=== PATIENT | male | born 1975 | race Two or more races ===

== ENCOUNTER 2016-11-04 16:20 | Emergency (ER) | payer BC ==
[~2016-11-04] VITALS: Ht 165.1 cm; Wt 81.0 kg
[2016-11-04 19:23] VITALS: BP 129/70
== END 2016-11-04 21:27 | disposition home or self-care (01) ==
LOC: ER 16:38
DX: R07.89 Other chest pain (principal); V89.2XXA Person injured in unspecified motor-vehicle accident, traffic, initial encounter; Y93.89 Activity, other specified; Y92.89 Other specified places as the place of occurrence of the external cause; Y99.8 Other external cause status
CPT/HCPCS: 93005; 99284